=== PATIENT | female | born 1945 | race Caucasian/White ===

== ENCOUNTER 2019-04-22 10:25 | Outpatient (RCR) | payer MEDICARE, MEDICAID, SELFPAY | END 2019-05-14 00:01 | LOC: LAB 10:25 | PROVIDERS: Family Provider General Practice; Visit Provider Family Medicine | DX: I10 Essential (primary) hypertension (principal) | CPT/HCPCS: 36415; 80048; 85025 ==

== ENCOUNTER 2019-05-27 14:32 | Outpatient (RCR) | payer MEDICARE, MEDICAID, SELFPAY ==
[2019-05-27 14:42] LABS: Basophils # 0.1 10^3/uL (0.0-0.1); Basophils % 0.7 %; Eosinophils # 0.1 10^3/uL (0.0-0.8); Eosinophils % 0.9 %; Hematocrit 41.5 % (37.0-47.0); Hemoglobin 12.8 g/dL (11.5-15.3); Lymphocytes # 2.8 10^3/uL (0.8-4.8); Mean Corpuscular HGB Conc 30.8 g/dL (30.0-36.0); Mean Corpuscular Volume 103.8 fL (81-99); Monocytes # 0.8 10^3/uL (0.2-0.9); Monocytes % 9.6 %; Neutrophils # 4.9 10^3/uL (1.8-7.7); Neutrophils % 56.5 %; Nucleated Red Blood Cells # 0.1 /100WBC; Nucleated Red Blood Cells % 0.6 %; Platelet Count 274 10^3/cmm (130-400); Red Cell Distribution Width 14.7 % (12.1-15.1); White Blood Count 8.7 10^3/uL (4.0-10.0)
[2019-05-27 15:13] LABS: Alanine Aminotransferase < 5 U/L (0-33); Albumin Level 3.9 g/dL (3.5-5.2); Alkaline Phosphatase 56 IU/L (35-105); Anion Gap 16.8 (5-19); Aspartate Amino Transferase 16 U/L (0-32); Blood Urea Nitrogen 13 mg/dL (8-23); Carbon Dioxide 24 mmol/L (22-29); Chloride 102 mmol/L (98-107); Free T4 Free Thyroxine 1.19 ng/dL (0.82-1.77); Globulin 2.5 g/dL (1.3-4.6); Glucose 89 mg/dL (74-106); Potassium 3.8 mmol/L (3.5-5.1); Sodium 139 mmol/L (136-145); Thyroid Stimulating Hormone 0.97 uIU/mL (0.27-4.20); Total Bilirubin 0.3 mg/dL (0.15-1.2); Total Protein 6.4 g/dL (6.6-8.7)
[2019-05-27 15:33] LABS: Blood Urine 3+ (Negative); Glucose Urine UA Norm (Normal); Ketones Urine Negative (Negative); Protein Urine 1+ (Negative); Urine Appearance Cloudy (CLEAR); Urine Color Yellow (Yellow)
[2019-05-27 15:34] LABS: Add Urine Microscopic? YES; Bilirubin Urine 1+ (NEGATIVE); Leukocyte Esterase Urine 2+ (Negative); Nitrate Urine Positive (Negative); Urobilinogen Urine Norm (Negative)
[2019-05-27 15:37] LABS: Add Urine Culture? Yes; Bacteria Urine 4+; Mucus Urine 2+; RBC Urine 25-40 /hpf (0-2); WBC Urine 55-80 /hpf (0-5)
== END 2019-06-14 23:59 | disposition home or self-care (01) ==
LOC: LAB 14:32
PROVIDERS: Family Provider General Practice; PCP General Practice; Visit Provider Family Medicine
DX: N39.0 Urinary tract infection, site not specified (principal); I10 Essential (primary) hypertension; J44.9 Chronic obstructive pulmonary disease, unspecified
CPT/HCPCS: 80053; 81003; 84439; 84443; 85025; 87077; 87086; 87186

== ENCOUNTER 2019-09-23 19:06 | Emergency (ER) | payer MEDICARE, SELFPAY ==
[2019-09-23 19:15] VITALS: BP 143/79; PULSE 92; RESP 18; TEMP 37.1; O2SAT 98; BMI 18.8
--- NOTE | 2019-09-23 19:25 | PC.NURSE ---
Pt is poor historian. Does not know meds she takes or pharmacy.
--- NOTE | 2019-09-23 19:27 | ED_ITS ---
HPI - Fall General: Chief Complaint: Fall Stated Complaint: FALL Time Seen by Provider: 09/23/19 19:13 History of Present Illness: HPI Narrative: Patient is a 74-year-old female who comes to the ED via EMS after having a fall. Patient says she was transferring from her bed into her wheelchair when she fell face first. She hit her forehead on the ground. She rates for head/headache pain a 5 out of 10. She denies any loss of consciousness and is only complaining of pain on her forehead. Denies vision changes, numbness tingling to extremities, weakness to extremities. Associated symptoms-after fall: Reports headache(s); Denies abdominal pain, chest pain, hematuria or neck pain Review of Systems Const: Denies: fever, chills or fatigue Eyes: Denies: change in vision or eye discomfort ENMT: Denies: throat pain, painful swallowing, nasal discharge or nasal congestion Card: Denies: chest pain, palpitations, edema, swelling of feet/ankles, shortness of breath on exertion or shortness of breath when lying down Resp: Denies: shortness of breath, productive cough or non-productive cough GI: Denies: abdominal pain, nausea, vomiting, diarrhea, constipation or blood in stool : Denies: flank pain, painful urination or blood in urine Musc: Denies: neck pain, back pain or extremity swelling Skin/Breast: Denies: rash or new lesion Neuro: Reports: headache; Denies: numbness in extremities or weakness in extremities [facility] ED PFSH: Social History Smoking and tobacco status: former smoker Physical Exam Const: COMMON NORMALS: oriented x3 HENMT: COMMON NORMALS: normocephalic and external nose normal HEAD & SCALP: normocephalic, contusion (2 cm ecchymosis on forehead.) and scalp tenderness (Tenderness over ecchymosis of forehead); no Hidalgo's sign and no raccoon eyes FACE & SINUS: no facial abrasion, no facial ecchymosis and no facial tenderness NOSE: external nose normal MOUTH: oral and palatal mucosa normal THROAT: posterior oropharynx normal and uvula midline Eye: COMMON NORMALS: PERRL PUPIL: Yes PERRL EOM: Yes movement deficit unable to deviate laterally (to the right side. deviation to left side was normal) Neck/C-Spine: COMMON NORMALS: supple GENERAL: Yes normal visual inspection Resp: COMMON NORMALS: normal respiratory effort, no retractions, no use of accessory muscles and clear to auscultation bilaterally AUSCULTATION: clear to auscultation bilaterally Cardio: COMMON NORMALS: regular rate, regular rhythm, S1 normal heart sound, S2 normal heart sound, no gallops, no clicks, no murmurs and peripheral pulses 2+ throughout RATE: regular rate RHYTHM: regular rhythm HEART SOUNDS: S1 normal and S2 normal PERIPHERAL PULSES: pulses 2+ throughout GI: COMMON NORMALS: normal to inspection, nondistended, normoactive bowel sounds, soft to palpation, non-tender and no masses PALPATION: Yes soft : COMMON NORMALS: Yes no CVA tenderness BLADDER/KIDNEY EXAM: Yes no CVA tenderness Back/Pelvis: COMMON NORMALS: no CVA tenderness Extremity: COMMON NORMALS: normal to inspection Neuro: COMMON NORMALS: oriented x3, CN's II-XII intact bilaterally, moves all extremities, no focal motor deficits and no sensory deficits noted COORDINATION/BALANCE: [id number] test normal SENSORY EXAM: Yes extremities (intact) MOTOR EXAM: strength 5/5 throughout COORDINATION: [id number] test normal Course Vital Signs: Vital signs: Vital Signs Temperature 98.7 F 09/23/19 19:15 Pulse Rate 92 09/23/19 19:15 Respiratory Rate 18 09/23/19 19:15 Blood Pressure 143/79 09/23/19 19:15 Pulse Oximetry 98 09/23/19 19:15 MDM - Fall MDM Narrative: Medical decision making narrative: Patient is a 74-year-old female who comes to the ED with headache and ecchymosis on forehead after having a fall. Physical exam showed ecchymosis on the forehead with some tenderness upon palpation of the forehead. Neuro exam was normal. Head CT scan showed no acute findings. Patient was given Tylenol for headache while here in the ED. Patient was discharged and told to follow-up with PCP in 5 to 7 days for reevaluation. Patient understood and agreed with plan. Imaging Data^: CT Head: Attestation: I personally reviewed and interpreted this imaging study as follows: Radiologist's impression: [address] [address] CT Scan Report Signed Patient: Nancy Monreal Unit #: [id number] : 1945 Age/Sex: 74 / F ADM Date: 09/23/19 Loc: ER Room/Bed: Attending Dr: Ordering Provider/Ordering MD: Jayant Lopez Date of Service: 09/23/19 Procedure(s): CT head wo con* [id number] Accession Number(s): [id number] Report Number: [id number] PROCEDURE INFORMATION: Exam: CT Head Without Contrast Exam date and time: 09/23/2019 7:34 PM Age: 74 years old Clinical indication: Injury or trauma; Patient HX: Fall today with blow to head. Bruising to forehead. ; Additional info: Fall hit forehead. Bruising and tenderness to forehead TECHNIQUE: Imaging protocol: Computed tomography of the head without contrast. Radiation optimization: All CT scans at this facility use at least one of these dose optimization techniques: automated exposure control; mA and/or kV adjustment per patient size (includes targeted exams where dose is matched to clinical indication); or iterative reconstruction. COMPARISON: CT head wo con* [id number] 2016-06-03 18:18 RADIATION DOSE METRICS: Total DLP: 940.62 mGy-cm FINDINGS: Brain: Diffuse severe cerebral volume loss. Diffuse moderate to severe patchy low attenuation in the white matter compatible with chronic small vessel ischemic disease. No midline shift, mass, fluid collection, or evidence of hemorrhage. Scattered chronic appearing lacunae in the deep tom structures and/or periventricular white matter. Left thalamic chronic lacunar infarct. Small right inferior audrey cerebellar infarct. Ventricles: Ventricular enlargement proportional to volume loss. There is a normal-variant cavum septum pellucidum. Bones/joints: Unremarkable. No acute fracture. Sinuses: Visualized sinuses are unremarkable. No fluid levels. Mastoid air cells: Visualized mastoid air cells are well aerated. Soft tissues: Unremarkable. CT/CT head wo con* [id number] IMPRESSION: Moderate to severe involutional changes, no acute intracranial abnormality. Radiation Dose CTDIVOL = (mGy): DLP = 940.62 (mGy-cm) Dictated By: Christopher Ewing MD Signed By: Christopher Ewing MD Signed Date/Time: 09/23/192051 DD/ 51 Discharge Plan Discharge Patient Disposition: Home, Self-Care Clinical Impression: Ecchymosis Fall as cause of accidental injury at home as place of occurrence Qualifiers: Encounter type: initial encounter Qualified Code(s): W19.XXXA - Unspecified fall, initial encounter Condition: Stable Discharge Orders: Discharge Order (Routine); Ordered 09/23/19 Ordered By: Jayant Lopez Referrals: Benjamin Beach MD [Primary Care Provider] - Discharge Diet: Regular Discharge Activity: Resume usual activity Patient Instructions: Contusion in Adults (ED), Fall Prevention (ED) Activity Restrictions/Additional Instructions: Have patient follow-up with PCP in 5 to 7 days for reevaluation. Continue taking all home medications. Take Tylenol for any headaches or pain. You can apply ice or cold pack on forehead to help with pain and swelling. Return to ED if symptoms worsen. Coding Level of Care Code ED Chair Installer for Edward Fwd Exam Comprehensive
[2019-09-23] MEDS: acetaminophen 325 mg Tablet PO (20:22)
--- NOTE | 2019-09-24 04:08 | PC.NURSE ---
Assumed care of patient from CN
[2019-09-24 07:25] VITALS: BP 93/53; PULSE 94; RESP 16; O2SAT 96
--- NOTE | 2019-09-24 07:27 | PC.NURSE ---
Patient resting in bed with eyes closed at this time, awaiting ride back to SNF.
[2019-09-24 08:00] VITALS: BP 120/62; PULSE 97; RESP 18; O2SAT 96
--- NOTE | 2019-09-24 08:12 | NUR.SHIFT ---
Called [employer] regarding pt ride. [place] [id number] and has been sent to [facility]. Ride should arrive at about 9am.
[2019-09-24 08:30] VITALS: BP 128/68; PULSE 88; RESP 16
--- NOTE | 2019-09-24 09:05 | PC.NURSE ---
Patient picked up by [facility] to be taken back to SNF at this time.
== END 2019-09-24 09:05 | disposition home or self-care (01) ==
PROVIDERS: Emergency Provider Physician Assistant; PCP General Practice
DX: R58 Hemorrhage, not elsewhere classified (principal); W06.XXXA Fall from bed, initial encounter; Z87.891 Personal history of nicotine dependence
CPT/HCPCS: 12345; 70450; 99281; 99283